=== PATIENT | female | born 1945 | race Caucasian/White ===

== ENCOUNTER → 2017-04-12 | Outpatient (CLI) | payer MEDICARE ==
--- NOTE | 2017-04-12 16:56 | Diagnostic Imaging Report ---
EXAM: CT Chest WITHOUT contrast 04/12/2017 3:51 PM INDICATION: Chronic cough and wheezing. COMPARISON: None TECHNIQUE: Chest was scanned utilizing a multidetector helical scanner from the lung apex through the level of the adrenal glands without administration of IV contrast. Absence of intravenous contrast decreases sensitivity for detection of lymphadenopathy and vascular pathology. Coronal and sagittal reformations were obtained. Routine protocol was performed. IV CONTRAST: None RADIATION DOSE: Total DLP: 519.60 mGy*cm Estimated effective dose: (DLP x 0.014 x size factor) mSv COMPLICATIONS: None FINDINGS: LINES/ TUBES: None. LUNGS AND AIRWAYS: Irregular linear densities in the lower lobes associated with mild central bronchiectasis, right greater than left suggestive of chronic change/scarring possibly related to a prior infectious etiology. There is also mild biapical pleural-parenchymal scarring. Linear atelectasis versus scarring in the lingula. Airways are normal. PLEURA: The pleural spaces are clear. HEART AND MEDIASTINUM: The thyroid gland is normal. No mediastinal, hilar or axillary lymphadenopathy. The heart is normal in size.. There is no pericardial effusion. Calcifications of the LAD. UPPER ABDOMEN: Limited non-contrast views of the upper abdomen show low-attenuation of the hepatic parenchyma consistent with steatosis. 5 mm nonobstructing calculus in the lower pole of the right kidney. Small sliding hiatal hernia with evidence of prior repair. The adrenal glands are normal. BONES: No acute osseous abnormality. Mild spondylosis of the thoracic spine. SOFT TISSUES: Nonspecific nodular breast tissue bilaterally. IMPRESSION: 1. No acute thoracic abnormality. Findings suggestive of bilateral lower lobe scarring likely reflecting sequela from a prior infection as detailed above. No parenchymal consolidation to suggest acute infection. 2. Hepatic steatosis. 3. 5 mm nonobstructing calculus in the lower pole of the right kidney. 4. Small sliding hiatal hernia, likely recurrent. Signed by: Dr. Lenin Jo M.D. on 04/12/2017 4:52 PM
--- NOTE | 2017-04-12 21:05 | Cardiology Report ---
DATE OF STUDY: April 12, 2017 ECHOCARDIOGRAM M-MODE: Normal chamber wall dimensions. Normal contractility. Normal mitral aortic valves. No pericardial effusion. SECTOR SCAN: Borderline dilated left atrium. Normal left ventricular wall thickness and contractility. Normal mitral, aortic and tricuspid valves. No pericardial effusion. There is some echogenicity noted in the right atrium. The significance of which is not clear. CARDIAC DOPPLER STUDY WITH COLOR: One + tricuspid regurgitation. Pulmonary artery systolic pressure estimated at 33 mmHg. CONCLUSIONS: 1. Echogenicity noted in the right atria of undetermined significance. Prominent cristae terminalis may be considered. 2. Mild tricuspid regurgitation. 3. Top normal left atrial size. 4. Left ventricular ejection fraction is approximately 60%. Job#: [id number] GH cc:ANTONETTE MACIAS DO
== END ==
LOC: RAD 15:38
PROVIDERS: ATTEND Family Medicine
DX: R05 Cough (principal); R06.01 Orthopnea; R93.8 Abnormal findings on diagnostic imaging of other specified body structures
CPT/HCPCS: 71250; 93306

== ENCOUNTER → 2017-04-30 | Outpatient (CLI) | payer MEDICARE ==
--- NOTE | 2017-04-30 12:20 | Diagnostic Imaging Report ---
EXAM: DXA BONE DENSITY INDICATIONS: Osteoporsis COMPARISON: None. FINDINGS: Proximal left femur bone mineral density (BMD) (g/cm2):0.735 Femur T-score (standard deviation relative to young adult mean BMD): -1.7 Femur Z-score (standard deviation relative to age-matched control group):-0.1 Lumbar bone mineral density (BMD) (g/cm2):0.947 Lumbar T-score (standard deviation relative to young adult mean BMD): -0.9 Lumbar Z-score (standard deviation relative to age-matched control group):<1.3 Change since prior exam (%): Femur:Not applicable. Spine:Not applicable. Change since oldest prior exam (%): Femur:Not applicable. Spine:Not applicable. CONCLUSION: 1. Bone mineral density in the left femur is classified as osteopenia. Fracture risk is increased. 2. Bone mineral density in the spine is classified as normal. Fracture risk is not increased. World Health Organization Classification: *The Z-score is provided for informational purposes. The T-score is preferable for clinical decisions. When comparing exams, a change of >4% is considered statistically significant. SUGGESTED RECOMMENDATIONS: Normal \T\ Osteopenia:Consideration should be given to use of calcium supplementation, daily multiple vitamins and adequate exercise, as preventive measures against osteoporosis, if clinically indicated. Osteoporosis \T\ Severe Osteoporosis:In addition to the above, consideration should be given to medical therapy against osteoporosis, if clinically indicated. Avinash Sweeney D.O. Dictated by: Avinash Sweeney D.O. on 04/30/2017 at 12:30 Electronically approved by: Avinash Sweeney D.O. on 04/30/2017 at 12:30
--- NOTE | 2017-05-01 11:11 | Diagnostic Imaging Report ---
Examination: MRI SPINE LUMBAR WITHOUT CONTRAST History: Osteoporosis with low back pain radiating to the bilateral lower extremities. Comparison studies: None Technique: Sagittal, coronal and axial T2 , sagittal T1 and STIR; axial spin density oblique. Findings: Number of lumbar vertebral bodies: Five. Alignment: Normal lordosis. No scoliosis. Soft tissues: Atrophic bilateral kidneys with subcentimeter T2 hyperintensities in the right kidney, likely representing cysts. Posterior paraspinal soft tissues and muscles: Mild fatty atrophy. Lower thoracic cord: Normal in signal and morphology. The tip of the conus is at T12. Cauda equina: No masses. No arachnoiditis. Vertebrae: No fractures, infection or neoplasm. Degenerative changes: L1-L2: No abnormalities. L2-L3: No degenerative disc. Mild bilateral facet arthropathy. No foraminal or canal stenosis. L3-L4: No degenerative disc. Mild bilateral facet arthropathy. No foraminal or canal stenosis. L4-L5: Mild diffuse disc bulge and mild bilateral facet arthropathy and mild ligamentum flavum thickening. No foraminal or canal stenosis. Small bilateral facet joint effusions. L5-S1: Degenerative intervertebral disc space fusion with grade I anterolisthesis due to bilateral pars defects. Diffuse disc osteophyte complex results in mild bilateral neural foraminal narrowing. No canal stenosis. IMPRESSION: 1. Degenerative changes from L2-L3 through L5-S1 without canal or significant (not moderate or severe) foraminal stenosis. 2. Bilateral isthmic spondylolisthesis at L5-S1. Signed by: Dr. Uzma Friedman M.D. on 05/01/2017 11:08 AM
== END ==
LOC: MRI 10:37
PROVIDERS: ATTEND Family Medicine
DX: Z12.31 Encounter for screening mammogram for malignant neoplasm of breast (principal); M81.0 Age-related osteoporosis without current pathological fracture; M47.26 Other spondylosis with radiculopathy, lumbar region
CPT/HCPCS: 72148; 77067; 77080

== ENCOUNTER → 2017-08-08 | Outpatient (CLI) | payer MEDICARE ==
--- NOTE | 2017-08-08 14:59 | Diagnostic Imaging Report ---
EXAM: CT Chest WITHOUT contrast 08/08/2017 2:05 PM INDICATION: Cough. COMPARISON: 04/12/2017. TECHNIQUE: Chest was scanned utilizing a multidetector helical scanner from the lung apex through the level of the adrenal glands without administration of IV contrast. Absence of intravenous contrast decreases sensitivity for detection of lymphadenopathy and vascular pathology. Coronal and sagittal reformations were obtained. Routine protocol was performed. IV CONTRAST: None RADIATION DOSE: Total DLP: 491.65 mGy*cm Estimated effective dose: (DLP x 0.014 x size factor) mSv COMPLICATIONS: None FINDINGS: LINES/ TUBES: None. LUNGS AND AIRWAYS: Mild bibasilar scarring, right greater than left, unchanged. No focal consolidation or masses.. Airways are normal. PLEURA: The pleural spaces are clear. HEART AND MEDIASTINUM: The thyroid gland is normal. No mediastinal, hilar or axillary lymphadenopathy. The heart is normal in size.. There is no pericardial effusion. Single origin of the brachiocephalic trunk and left common carotid artery incidentally noted. Calcification of left coronary artery branches. UPPER ABDOMEN: Limited non-contrast views of the upper abdomen show a 6 mm nonobstructing calculus in both right and left lower renal poles. Mild diffuse low-attenuation of the hepatic parenchyma suggesting steatosis. Small to moderate-sized hiatal hernia again observed, with evidence of prior repair. BONES: Degenerative changes of the lower thoracic spine. No acute osseous abnormality. SOFT TISSUES: Unremarkable. IMPRESSION: No significant interval change. Mild bibasilar scarring, right greater than left. No acute thoracic abnormality. Signed by: Dr. Lenin Jo M.D. on 08/08/2017 2:55 PM
== END ==
LOC: CT 13:57
PROVIDERS: ATTEND Internal Medicine Pulmonary Disease
DX: R05 Cough (principal)
CPT/HCPCS: 71250

== ENCOUNTER → 2021-12-16 | Day surgery (SDC) | payer MEDICARE ==
[2021-12-14 09:34] LABS: BASOPHILS # (AUTO) 0.1 (0.0-0.1); BASOPHILS % 1.3 % (0.0-1.0); EOSINOPHILS % 21.5 % (0.0-6.0); HEMATOCRIT 33.1 % (34.2-44.1); HEMOGLOBIN 10.1 g/dL (12.0-16.0); LYMPHOCYTES # (AUTO) 1.4 (1.0-3.2); LYMPHOCYTES % 30.1 % (18.0-39.1); MEAN CORPUSCULAR HEMOGLOBIN 30.8 pg (28-32); MEAN CORPUSCULAR HGB CONC 30.5 g/dL (31-35); MEAN CORPUSCULAR VOLUME 100.9 fL (81-99); MONOCYTES # (AUTO) 0.4 (0.2-0.8); MONOCYTES % 8.8 % (4.4-11.3); NEUTROPHILS # (AUTO) 1.8 (2.1-6.9); NEUTROPHILS % 38.1 % (38.7-80.0); PLATELET COUNT 147 x10e3/uL (140-360); RED BLOOD COUNT 3.28 x10e6/uL (3.6-5.1); RED CELL DISTRIBUTION WIDTH 16.8 % (11.7-14.4)
[2021-12-14 10:33] LABS: EOSINOPHILS % (MANUAL) 24 % (0-7); LYMPHOCYTES % (MANUAL) 25 % (19-48); MONOCYTES % (MANUAL) 6 % (3.4-9.0); NEUTROPHILS % (MANUAL) 44 % (40-74)
[2021-12-14 10:35] LABS: ANISOCYTOSIS MODERATE; HYPOCHROMASIA SLIGHT; PLATELET ESTIMATE ADEQUATE; PLATELET MORPHOLOGY COMMENT NORMAL; RBC MORPHOLOGY COMMENT ABNORMAL
[~2021-12-16] MED LIST: ARAVA20 MG PO; ASPIRIN81 MG PO; ATORVASTATIN CA20 MG PO; CLOPIDOGREL75 MG PO; FENTANYL CITRATE/PF 100MCG/2 ML INJ ONE; LIDOCAINE HCL 2% LOCAL INJ 5 ML SDV VIAL INJ ONE; LOSARTAN POTASS25 MG PO; MECLIZINE HCL12.5 MG PO; METOPROLOL SUCC25 MG PO; MIDAZOLAM HCL 2 MG/2 ML VIAL ONE; PANTOPRAZOLE SO40 MG PO; PAROXETINE HCL20 MG PO; PROPOFOL IV EMULSION 10 MG/ML 20 ML VIAL ONE; ULTRAM50 MG PO
[2021-12-16 11:45] VITALS: BP 129/65
== END | disposition home or self-care (01) ==
LOC: OR 08:24
PROVIDERS: ATTEND Internal Medicine Gastroenterology
DX: Z09 Encounter for follow-up examination after completed treatment for conditions other than malignant neoplasm (principal); Z87.11 Personal history of peptic ulcer disease; K29.60 Other gastritis without bleeding; D64.9 Anemia, unspecified; I25.10 Atherosclerotic heart disease of native coronary artery without angina pectoris; I25.2 Old myocardial infarction; I10 Essential (primary) hypertension; R00.1 Bradycardia, unspecified; N20.0 Calculus of kidney; M06.9 Rheumatoid arthritis, unspecified; F41.9 Anxiety disorder, unspecified; F32.A Depression, unspecified; Z88.2 Allergy status to sulfonamides; Z01.810 Encounter for preprocedural cardiovascular examination; Z01.812 Encounter for preprocedural laboratory examination; Z79.02 Long term (current) use of antithrombotics/antiplatelets; Z79.82 Long term (current) use of aspirin; Z79.899 Other long term (current) drug therapy; Z98.61 Coronary angioplasty status
CPT/HCPCS: 36415; 43239; 85025; 93005; C9113; J2001; J2250; J2704; J3010